=== PATIENT | female | born 1950 | race Caucasian/White ===

== ENCOUNTER → 2019-02-12 | Outpatient (CLI) | payer MEDICARE | END | disposition home or self-care (01) | LOC: LABPV 14:40 | PROVIDERS: ATTEND Legal Medicine | DX: R05 Cough (principal) | CPT/HCPCS: 87070; 87205 ==

== ENCOUNTER → 2019-02-18 | Outpatient (CLI) | payer MEDICARE | END | disposition home or self-care (01) | LOC: RADPV 11:56 | PROVIDERS: ATTEND Legal Medicine | DX: J18.9 Pneumonia, unspecified organism (principal); I70.0 Atherosclerosis of aorta ==

== ENCOUNTER → 2019-03-20 | Outpatient (CLI) | payer MEDICARE | END | disposition home or self-care (01) | LOC: LABPV 08:50 | PROVIDERS: ATTEND Internal Medicine Critical Care Medicine | DX: R05 Cough (principal) | CPT/HCPCS: 86606; 86635; 87305 ==

== ENCOUNTER → 2019-03-24 | Outpatient (CLI) | payer MEDICARE | END | disposition home or self-care (01) | LOC: RESP 09:17 | PROVIDERS: ATTEND Internal Medicine Critical Care Medicine | DX: J44.9 Chronic obstructive pulmonary disease, unspecified (principal) | CPT/HCPCS: 94010; 94726; 94727; 94729 ==

== ENCOUNTER → 2019-09-21 | Outpatient (CLI) | payer MEDICARE ==
[~2019-09-21] VITALS: Ht 170.2 cm; Wt 95.0 kg
[~2019-09-21] MED LIST: BUPR-93 PO; EZET10TA13 PO; FAMO20 PO; FESO8TAB PO; LOSA25TA2 PO; PROZ10 PO
[2019-09-21 10:16] VITALS: BP 147/79
== END | disposition home or self-care (01) ==
LOC: SRCNTR 10:13
PROVIDERS: ATTEND Internal Medicine Critical Care Medicine
DX: R05 Cough (principal); J98.4 Other disorders of lung; G35 Multiple sclerosis; I10 Essential (primary) hypertension
CPT/HCPCS: G0463